=== PATIENT | female | born 1990 | race Caucasian/White ===

== ENCOUNTER 2019-11-16 23:03 | Observation (INO) | payer MEDICAID ==
[2019-11-17] MEDS ORDERED: PNV1TABL50 MT (00:02)
== END 2019-11-17 00:10 | disposition home or self-care (01) ==
LOC: 8 EST LDRP 23:03
PROVIDERS: ADMIT Obstetrics & Gynecology; ATTEND Obstetrics & Gynecology
DX: O36.8130 Decreased fetal movements, third trimester, not applicable or unspecified (principal); Z3A.38 38 weeks gestation of pregnancy
CPT/HCPCS: 59025; G0378; 99281